=== PATIENT | female | born 1975 | race African-American/Black ===

== ENCOUNTER 2018-06-22 08:09 | Emergency (ER) | payer OTHER ==
[~2018-06-22] VITALS: Ht 160 cm; Wt 105.0 kg
[2018-06-22 08:12] VITALS: TEMP 36.6; Ht 160 cm; Wt 105.0 kg
[2018-06-22] MEDS ORDERED: KETOROLAC TROMETHAMINE 30 MG/ML VIAL IV STA (08:29)
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
[2018-06-22] MEDS ORDERED: OPTIRAY 320 IV PRN (08:45)
[2018-06-22 08:46] LABS: BASO % 0.2 %; BASO ABS # 0.02 K/uL (0-0.2); EOS % 3.2 %; EOS ABS # 0.26 K/uL (0-0.5); HEMATOCRIT 35.3 % (37-47); HEMOGLOBIN 11.7 g/dL (12.0-16.0); IG# 0.03 K/uL (0.00-0.02); LYMPH % 32.1 %; LYMPH ABS # 2.62 K/uL (1.2-3.4); MEAN CELL VOLUME 87.8 fL (80-100); MEAN CORPUSCULAR HEMOGLOBIN 29.1 pg (25-34); MEAN CORPUSCULAR HGB CONC 33.1 g/dl (32-36); MEAN PLATELET VOLUME 9.3 fL (7.4-10.4); MONO % 6.6 %; MONO ABS # 0.54 K/uL (0.11-0.59); NEUT % 57.5 %; NEUT ABS # 4.69 K/uL (1.4-6.5); PLATELET COUNT 282 K/uL (130-400); RED CELL DISTRIBUTION WIDTH SD 55.3 fL (36.4-46.3); WHITE BLOOD COUNT 8.16 K/uL (4.8-10.8)
[2018-06-22 08:57] LABS: ISTAT CREATININE 0.5 mg/dl (0.6-1.3); ISTAT IONIZED CALCIUM 1.14 mmol/l (1.12-1.32); ISTAT POTASSIUM 3.9 mEq/L (3.3-5.0)
[2018-06-22] MEDS ORDERED: VNTHFA/IN INH (09:01)
[2018-06-22 09:03] LABS: CALCIUM 8.8 mg/dl (8.5-10.1); CREATININE 0.61 mg/dl (0.60-1.20); POTASSIUM 3.9 mmol/L (3.5-5.1)
[2018-06-22 09:21] LABS: ALBUMIN 3.5 gm/dl (3.4-5.0); ALKALINE PHOSPHATASE 62 U/L (45-117); ALT/SGPT 17 U/L (12-78); AST/SGOT 19 U/L (15-37); LIPASE 322 U/L (73-393); TOTAL PROTEIN 7.5 gm/dl (6.4-8.2)
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
[2018-06-22 10:37] VITALS: BP 141/95; PULSE 68; O2SAT 99
== END 2018-06-22 10:52 | disposition home or self-care (01) ==
LOC: EDBD 08:09 → C.EDA 08:12
DX: R07.9 Chest pain, unspecified (principal); S20.211A Contusion of right front wall of thorax, initial encounter; V47.6XXA Car passenger injured in collision with fixed or stationary object in traffic accident, initial encounter; Y92.488 Other paved roadways as the place of occurrence of the external cause; J45.909 Unspecified asthma, uncomplicated